=== PATIENT | male | born 1975 | race African-American/Black ===

== ENCOUNTER 2017-06-22 00:17 | Emergency (ER) | payer SELFPAY ==
[2017-06-22] MEDS ORDERED: Cyclobenzaprine TAB* 10 MG PO ONE (02:55)
--- NOTE | 2017-06-22 03:00 | ED ---
Yoni Jeronimo Thomas, scribed for Vinay Guzman MD on 06/22/17 at 0248 . Back Pain - HPI Summary HPI Summary: The patient is a 41 year old female presenting to the emergency department complaining of gradual-onset lower back pain for the last 12 hours after he slipped and fell on ice. The pain is rated 9/10 and it is constant. The pain alleviated by moving around. There is no radiation to his buttocks. The patient has treated the symptoms with ibuprofen prior to arrival. The patient denies bladder or bowel incontinence and lower extremity weakness. - History of Current Complaint Chief Complaint: EDBackInjuryPain Stated Complaint: BACK PAIN Hx Obtained From: Patient Onset/Duration: Lasting Hours - 12, Still Present Onset/Duration: Still Present Timing: Constant Back Pain Location: Is Discrete @ - lower back Severity Currently: Severe Pain Intensity: 9 Pain Scale Used: 0-10 Numeric Alleviating Symptom(s): OTC Meds - ibuprofen, Other - Moving around decreases pain Associated Signs And Symptoms: Negative: Fever, Weakness - lower extremity, Bladder Incontinence, Bowel Incontinence - Allergies/Home Medications Allergies/Adverse Reactions: Allergies Allergy/AdvReac Type Severity Reaction Status Date / Time No Known Allergies Allergy Verified 06/22/17 00:25 PMH/Surg Hx/FS Hx/Imm Hx Opthamlomology History: Denies: Hx Legally Blind EENT History: Denies: Hx Deafness Infectious Disease History: No Infectious Disease History: Denies: Traveled Outside the [place] in Last 30 Days - Family History Known Family History: Positive: Other - Back problems - Social History Alcohol Use: Occasionally Hx Substance Use: Yes Substance Use Type: Reports: Marijuana Substance Use Comment - Amount & Last Used: today Hx Tobacco Use: Yes Smoking Status (MU): Heavy Every Day Tobacco Smoker Review of Systems Negative: Fever Negative: Other - bowel incontinence Negative: incontinence - bladder Positive: Other - Back pain Negative: Weakness - lower extremity All Other Systems Reviewed And Are Negative: Yes Physical Exam - Summary Physical Exam Summary: General: well-appearing, no pain distress Skin: warm, color reflects adequate perfusion, dry Head: normal Eyes: EOMI, EDWIN ENT: normal Neck: supple, nontender Respiratory: CTA, breath sounds present Cardiovascular: RRR Abdomen: soft, nontender Back: He is tender to palpation to his mid lumbar spine paraspinal muscles. Bowel: present Musculoskeletal: normal, strength/ROM intact Neurological: normal, sensory/motor intact, A&O x3 Psychological: affect/mood appropriate Triage Information Reviewed: Yes Vital Signs On Initial Exam: Initial Vitals Temp Pulse Resp BP Pulse Ox 97.4 F 60 18 139/78 100 06/22/17 00:22 06/22/17 00:22 06/22/17 00:22 06/22/17 00:22 06/22/17 00:22 Vital Signs Reviewed: Yes Diagnostics - Vital Signs Vital Signs Temp Pulse Resp BP Pulse Ox 06/22/17 00:22 97.4 F 60 18 139/78 100 - Laboratory Lab Statement: Any lab studies that have been ordered have been reviewed, and results considered in the medical decision making process. Back Pain Course/Dx - Course Course Of Treatment: Medications reviewed. BP noted and patient urged primary care follow-up. NO RADICULOPATHY. NO NEUROLOGIC DEFICIT. F/U PMD; RETURN IF WORSE. - Diagnoses Provider Diagnoses: Elevated BP without diagnosis of hypertension, Low back pain Discharge - Discharge Plan Condition: Stable Disposition: HOME Prescriptions: Cyclobenzaprine TAB* [Flexeril 10 MG TAB*] 10 mg PO TID PRN #15 tab PRN Reason: Pain oxyCODONE/Acetamin 5/325 MG* [Percocet 5/325 TAB*] 1 tab PO Q4H PRN #20 tab MDD 6 PRN Reason: Pain Patient Education Materials: Low Back Strain (ED) Forms: *Work Release Referrals: [facility] [Outside] Non Staff,Doctor [Primary Care Provider] - Additional Instructions: FOLLOW UP WITH YOUR DOCTOR. RETURN TO THE EMERGENCY DEPARTMENT FOR ANY WORSENING OF YOUR CONDITION; WEAKNESS , NUMBNESS, DIFFICULTY CONTROLLING BOWEL OR BLADDER OR QUESTIONS OR CONCERNS. The documentation as recorded by the oYni calderon Thomas accurately reflects the service I personally performed and the decisions made by me, Vinay Guzman MD.
[2017-06-22 03:14] VITALS: BP 138/53
== END 2017-06-22 03:11 | disposition home or self-care (01) ==
LOC: ED 00:17
DX: R03.0 Elevated blood-pressure reading, without diagnosis of hypertension (principal); M54.5 Low back pain; F17.210 Nicotine dependence, cigarettes, uncomplicated
CPT/HCPCS: 99282; A9270-GY

== ENCOUNTER 2018-01-30 21:12 | Emergency (ER) | payer OTHER ==
[2018-01-30] MEDS ORDERED: Diazepam TAB(*) 5 MG PO ONE (22:51)
[2018-01-30] MEDS ORDERED: Ketorolac INJ* 60 MG/2 ML VIAL IM ONE (23:03)
--- NOTE | 2018-01-30 23:03 | ED ---
Back Pain - HPI Summary HPI Summary: Complains of right lower back pain after bending over earlier today. History of same. Patient ambulatory. Denies fever, radiation of pain down legs, urinary retention, incontinence, loss of sensation or function distally in bilateral extremities, abdominal pain, change in urine, change in BM. Medical history is none. States positive smoker, occasional EtOH, denies IV drug use. - History of Current Complaint Chief Complaint: EDBackInjuryPain Stated Complaint: BACK PAIN Time Seen by Provider: 01/30/18 21:56 Hx Obtained From: Patient Onset/Duration: Sudden Onset Onset/Duration: Started Hours Ago Timing: Constant Back Pain Location: Is Discrete @ Severity Initially: Moderate Severity Currently: Moderate Pain Intensity: 8 Pain Scale Used: 0-10 Numeric Character: Aching Aggravating Symptom(s): Movement, Walking Alleviating Symptom(s): Rest Associated Signs And Symptoms: Positive: Negative - Allergies/Home Medications Allergies/Adverse Reactions: Allergies Allergy/AdvReac Type Severity Reaction Status Date / Time No Known Allergies Allergy Verified 01/30/18 21:26 PMH/Surg Hx/FS Hx/Imm Hx Endocrine/Hematology History: Denies: Hx Anticoagulant Therapy Cardiovascular History: Denies: Hx Cardiac Arrest History: Denies: Hx Dialysis Sensory History: Denies: Hx Legally Blind, Hx Deafness Opthamlomology History: Denies: Hx Legally Blind Neurological History: Denies: Hx CVA Infectious Disease History: No Infectious Disease History: Denies: Traveled Outside the [place] in Last 30 Days - Family History Known Family History: Positive: Other - Back problems - Social History Alcohol Use: Rare Hx Substance Use: Yes Substance Use Type: Reports: None Substance Use Comment - Amount & Last Used: today Hx Tobacco Use: Yes Smoking Status (MU): Heavy Every Day Tobacco Smoker Review of Systems Constitutional: Negative Eyes: Negative ENT: Negative Cardiovascular: Negative Respiratory: Negative Gastrointestinal: Negative Genitourinary: Negative Musculoskeletal: Other Skin: Negative Neurological: Negative Psychological: Normal All Other Systems Reviewed And Are Negative: Yes Physical Exam - Summary Physical Exam Summary: No tenderness, deformity, erythema, ecchymosis, swelling, mass noted to entire spine. Positive tenderness to right lower paraspinal muscles and right gluteus muscle. Negative right side straight leg test. PMS intact distally bilateral lower extremities. Triage Information Reviewed: Yes Vital Signs On Initial Exam: Initial Vitals Temp Pulse Resp BP Pulse Ox 98.9 F 65 16 128/82 98 01/30/18 21:24 01/30/18 21:24 01/30/18 21:24 01/30/18 21:24 01/30/18 21:24 Vital Signs Reviewed: Yes Appearance: Positive: Well-Appearing Skin: Positive: Warm Head/Face: Positive: Normal Head/Face Inspection Eyes: Positive: Normal Neck: Positive: Supple Respiratory/Lung Sounds: Positive: Clear to Auscultation Cardiovascular: Positive: Normal Abdomen Description: Positive: Nontender Musculoskeletal: Positive: Normal Neurological: Positive: Normal Psychiatric: Positive: Normal AVPU Assessment: Alert - Reyna Coma Scale Best Eye Response: 4 - Spontaneous Best Motor Response: 6 - Obeys Commands Best Verbal Response: 5 - Oriented Coma Scale Total: 15 Diagnostics - Vital Signs Vital Signs Temp Pulse Resp BP Pulse Ox 01/30/18 21:24 98.9 F 65 16 128/82 98 - Laboratory Lab Statement: Any lab studies that have been ordered have been reviewed, and results considered in the medical decision making process. Back Pain Course/Dx - Course Course Of Treatment: Complains of right lower back pain after bending over earlier today. History of same. Patient ambulatory. Denies fever, radiation of pain down legs, urinary retention, incontinence, loss of sensation or function distally in bilateral extremities, abdominal pain, change in urine, change in BM. Medical history is none. States positive smoker, occasional EtOH , denies IV drug use. Physical exam:No tenderness, deformity, erythema, ecchymosis, swelling, mass noted to entire spine. Positive tenderness to right lower paraspinal muscles and right gluteus muscle. Negative right side straight leg test. PMS intact distally bilateral lower extremities. Vital signs normal. Patient denies significant improvement with Valium 5 mg by mouth and Toradol 60 mg IM. Patient asking for Percocet. Possibly seeking pain meds. Rx for Flexeril, advised to take ibuprofen with Flexeril. Follow-up with primary care or pain management clinic . History of same back pain prior. - Diagnoses Provider Diagnoses: Acute back pain, Muscle spasm Discharge - Sign-Out/Discharge Documenting (check all that apply): Patient Departure - Discharge Plan Condition: Stable Disposition: HOME Prescriptions: Cyclobenzaprine TAB* [Flexeril 10 MG TAB*] 10 mg PO BID PRN 7 Days #14 tab PRN Reason: Pain Patient Education Materials: Acute Low Back Pain (ED), Muscle Spasm (ED) Referrals: No Primary Care Phys,NOPCP [Primary Care Provider] - Additional Instructions: Follow-up with primary care. Return to the ED for any new or worsening symptoms - Billing Disposition and Condition Condition: STABLE Disposition: Home
[2018-01-31 00:05] VITALS: BP 128/64
== END 2018-01-31 00:03 | disposition home or self-care (01) ==
LOC: ED 21:12
DX: M54.5 Low back pain (principal); M62.838 Other muscle spasm
CPT/HCPCS: 96372; 99282; A9270-GY; J1885